=== PATIENT | male | born 1935 | race Caucasian/White ===

== ENCOUNTER → 2019-08-04 08:27 | Outpatient (BNVA) | payer MEDICARE, OTHER, SELFPAY | PROVIDERS: Family Provider Family Medicine; PCP Family Medicine; Referring Provider Family Medicine; Visit Provider Family Medicine | DX: N40.0 Benign prostatic hyperplasia without lower urinary tract symptoms (principal) | CPT/HCPCS: 84154 ==

== ENCOUNTER → 2020-01-13 09:23 | Outpatient (BNVA) | payer MEDICARE, OTHER, SELFPAY | PROVIDERS: Family Provider Family Medicine; PCP Family Medicine; Visit Provider Dermatology | DX: L82.1 Other seborrheic keratosis (principal); B35.1 Tinea unguium; D18.01 Hemangioma of skin and subcutaneous tissue; Z85.828 Personal history of other malignant neoplasm of skin; Z12.83 Encounter for screening for malignant neoplasm of skin | CPT/HCPCS: 17000; 17003; 99203 ==

== ENCOUNTER → 2020-02-02 10:09 | Outpatient (BNVA) | payer MEDICARE, OTHER, SELFPAY | PROVIDERS: Family Provider Family Medicine; PCP Family Medicine; Visit Provider Family Medicine | DX: E11.9 Type 2 diabetes mellitus without complications (principal); E78.00 Pure hypercholesterolemia, unspecified; I10 Essential (primary) hypertension | CPT/HCPCS: 80053; 80061; 83036; 85025 ==

== ENCOUNTER 2020-03-17 08:15 | Outpatient (CLI) | payer MEDICARE, OTHER, SELFPAY ==
--- NOTE | 2020-03-17 08:45 | USCV_ITS ---
Fernando Ortiz Age: 85 Gender: M : 1935 Exam Date: 03/17/2020 08:14 Ordering Phys: Raudel Neal DPM Technologist: Iron José Exam Location: [facility] [place] Indication: pad RIGHT LEFT Brachial 175.00 mmHg Brachial 173.00 mmHg Pressure (mmHg) Waveform Pressure (mmHg) Waveform 97.00 Pre-Exercise Toe Pressure 119.00 0.55 Pre-Exercise Toe/Brachial Index 0.68 FINDINGS bilateral ankle pressures >220 But normal resting ABIs bilaterally Slightly diminished resting TBI's bilaterally PVR waveforms revealing loss of dicrotic notch and relatively low amplitude waveforms bilaterally CONCLUSIONS Features of mild peripheral artery disease involving the distal vessels bilaterally Dr Eufemia Pulido MD FAC (Electronically Signed) Final Date: 17 March 2020 09:51 S
== END 2020-03-17 08:16 | disposition home or self-care (01) ==
LOC: RAD 08:22
PROVIDERS: PCP Family Medicine; Visit Provider Podiatrist Foot & Ankle Surgery
DX: I73.9 Peripheral vascular disease, unspecified (principal)
CPT/HCPCS: 93923

== ENCOUNTER → 2020-04-17 14:59 | Outpatient (BNVA) | payer MEDICARE, OTHER, SELFPAY | PROVIDERS: PCP Family Medicine; Visit Provider Family Medicine | DX: Z11.59 Encounter for screening for other viral diseases (principal) | CPT/HCPCS: 87635 ==

== ENCOUNTER → 2020-04-19 12:45 | Outpatient (BNVA) | payer MEDICARE, OTHER, SELFPAY | PROVIDERS: PCP Family Medicine; Visit Provider Family Medicine | DX: E11.9 Type 2 diabetes mellitus without complications (principal); U07.1 COVID-19; Z98.890 Other specified postprocedural states | CPT/HCPCS: 36416; 71046; 80053; 82962; 85025 ==

== ENCOUNTER → 2020-10-12 10:09 | Outpatient (BNVA) | payer MEDICARE, OTHER, SELFPAY | PROVIDERS: PCP Family Medicine; Visit Provider Family Medicine | DX: I12.9 Hypertensive chronic kidney disease with stage 1 through stage 4 chronic kidney disease, or unspecified chronic kidney disease (principal); N18.1 Chronic kidney disease, stage 1; N40.0 Benign prostatic hyperplasia without lower urinary tract symptoms; E78.00 Pure hypercholesterolemia, unspecified; E11.9 Type 2 diabetes mellitus without complications; M51.16 Intervertebral disc disorders with radiculopathy, lumbar region; D53.9 Nutritional anemia, unspecified; Z68.28 Body mass index [BMI] 28.0-28.9, adult; F17.211 Nicotine dependence, cigarettes, in remission | CPT/HCPCS: 80053; 80061; 82607; 83036; 85025; G0103 ==

== ENCOUNTER → 2021-01-12 09:06 | Outpatient (BNVA) | payer MEDICARE, OTHER, SELFPAY | PROVIDERS: PCP Family Medicine; Visit Provider Family Medicine | DX: E53.8 Deficiency of other specified B group vitamins (principal); E78.00 Pure hypercholesterolemia, unspecified; E11.9 Type 2 diabetes mellitus without complications | CPT/HCPCS: 80053; 80061; 82607; 83036; 85025 ==

== ENCOUNTER → 2021-04-05 11:47 | Outpatient (BNVA) | payer MEDICARE, OTHER, SELFPAY | PROVIDERS: PCP Family Medicine; Visit Provider Family Medicine | DX: E53.8 Deficiency of other specified B group vitamins (principal); D53.9 Nutritional anemia, unspecified; E11.9 Type 2 diabetes mellitus without complications; N18.1 Chronic kidney disease, stage 1; M51.16 Intervertebral disc disorders with radiculopathy, lumbar region | CPT/HCPCS: 80048; 82607; 83036; 85025 ==

== ENCOUNTER → 2021-08-08 10:09 | Outpatient (BNVA) | payer MEDICARE, OTHER, SELFPAY | PROVIDERS: PCP Family Medicine; Visit Provider Family Medicine | DX: E11.9 Type 2 diabetes mellitus without complications (principal); E53.8 Deficiency of other specified B group vitamins; I12.9 Hypertensive chronic kidney disease with stage 1 through stage 4 chronic kidney disease, or unspecified chronic kidney disease; N18.9 Chronic kidney disease, unspecified; M51.16 Intervertebral disc disorders with radiculopathy, lumbar region | CPT/HCPCS: 80048; 82607; 83036 ==

== ENCOUNTER → 2022-01-08 08:45 | Outpatient (BNVA) | payer MEDICARE, OTHER, SELFPAY | PROVIDERS: PCP Family Medicine; Visit Provider Podiatrist Foot & Ankle Surgery | DX: E11.8 Type 2 diabetes mellitus with unspecified complications (principal); E11.42 Type 2 diabetes mellitus with diabetic polyneuropathy; L60.3 Nail dystrophy; I73.9 Peripheral vascular disease, unspecified; Z79.84 Long term (current) use of oral hypoglycemic drugs | CPT/HCPCS: 11721 ==

== ENCOUNTER 2022-02-17 18:57 | Inpatient (IN) | payer MEDICARE, OTHER, SELFPAY ==
[2022-02-17] VITALS (42 sets, daily range): BP systolic 65–111; BP diastolic 40–71; PULSE 78–97; RESP 15–26; TEMP 36–36.9; O2SAT 88–98; BMI 27.8
--- NOTE | 2022-02-17 18:59 | ECG_ITS ---
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: : 1935 Requested By: Ryan Andrew Order Number: [id number] Reading MD: Measurements Intervals [place] Rate: 76 P: MD: QRS: 2 QRSD: 100 T: 31 QT: 414 QTc: 468 Interpretive Statements ATRIAL FIBRILLATION WITH ABERRANT CONDUCTION OR VENTRICULAR PREMATURE COMPLEXES ST ELEVATION, PROBABLY EARLY REPOLARIZATION [ST ELEVATION WITH NORMALLY INFLECTED T-WAVE] MINIMAL ST DEPRESSION [0.025+ mV ST DEPRESSION] ABNORMAL RHYTHM ECG INTERPRETATION BASED ON A DEFAULT AGE OF 40 YEARS No previous ECG available for comparison [id number]
--- NOTE | 2022-02-17 19:04 | XRR_ITS ---
PROCEDURE INFORMATION: Exam: XR Chest Exam date and time: 02/17/2022 7:10 PM Age: 87 years old Clinical indication: Pain; Chest pressure; Additional info: Cp TECHNIQUE: Imaging protocol: Radiologic exam of the chest. Views: 1 view. COMPARISON: CR XR chest 2V* [id number] 04/19/2020 1:03 PM FINDINGS: Lungs: Unchanged. Coarsening of lung markings again suggested at lower chest bilaterally and mid left chest. Pleural spaces: Unremarkable. No pleural effusion. No pneumothorax. Heart/Mediastinum: Stable borderline cardiac prominence. Bones/joints: Sternotomy wires are in place. Left shoulder arthroplasty hardware in place. XR/XR chest 1V portable [id number] IMPRESSION: No acute change from prior study
[2022-02-17] MEDS: ondansetron 2 mg/ML SDV 2 mL 4 MG IVP (19:11)
[2022-02-17 19:13] LABS: Basophils # 0.1 10^3/uL (0.0-0.1); Basophils % 0.8 %; Eosinophils # 0.1 10^3/uL (0.0-0.8); Eosinophils % 0.8 %; Hematocrit 34.1 % (42.0-52.0); Lymphocytes # 2.8 10^3/uL (0.8-4.8); Lymphocytes % 45.8 %; Mean Corpuscular HGB Conc 32.3 g/dL (30.0-36.0); Mean Corpuscular Hemoglobin 33.1 pg (28.0-34.0); Mean Corpuscular Volume 102.7 fl (80-94); Mean Platelet Volume 11.3 fL (7.4-10.4); Monocytes # 0.4 10^3/uL (0.2-0.9); Monocytes % 6.5 %; Neutrophils # 2.79 10^3/uL (1.8-7.7); Neutrophils % 45.3 %; Nucleated Red Blood Cells % 0.5 %; Platelet Count 211 10^3/cmm (130-400); Red Blood Count 3.32 10^6/uL (4.1-5.3); Red Cell Distribution Width 15.9 % (12.1-15.1); White Blood Count 6.2 10^3/uL (4.0-10.0)
[2022-02-17] MEDS: heparin 5,000 unit/mL INJ 1 mL 4000 UNIT IVP (19:13)
[2022-02-17] MEDS: ticagrelor 90 mg Tablet 180 MG PO (19:14)
[2022-02-17] MEDS: fentaNYL 50 mcg/mL INJ 2mL IVP (19:15)
[2022-02-17] MEDS: sodium chloride 0.9% 500 ML 999 ML IV (19:19)
--- NOTE | 2022-02-17 19:22 | XACV_ITS ---
Exam Room: ED.ROOM10 Ht: 183 cm Wt: 93 kg BSA: 2.19 m2 Gender: Male : 1935 Exam Priority: Routine Procedure(s): Procedure Description: Diagnostic procedure Procedure Description: Aortogram Procedure Description: Venous Graft Catheterization Procedure Description: QUIROZ Graft Catheterization Procedure Description: Coronary Angiography Júnior MCDONALD; Diagnostic Cath Status: Emergency Diagnostic Findings * Left Anterior Descending is ostially occluded. * Circumflex is ostially occluded. * There is no flow in the QUIROZ in the midsegment. * L * eft Internal Mammary Artery to Distal Left Anterior Descending graft: total occlusion, TIMMY: 0 flow. * RCA has diffuse, severely calcified, critical disease. And distal segment RCA is totally occluded. . * SVG to OM is a large graft. It supplies a very large territory and fills circumflex all the way back to left main with significant flow going into the proximal LAD and diagonal vessels. No significant disease is seen. * SVG to RCA is occluded.. * PROCCEDURE DETAIL: Patient has severe peripheral artery disease. We had difficulty obtaining access, then crossing equipment from femoral access into aorta secondary to distal aortic/iliac disease. Exchange length wire was used to exchange different catheters during the procedure. Patient had ostial left subclavian, severe, calcified stenosis. With significant difficulty we were able to cross with Glidewire and advanceddiagnostic catheter to subclavian artery and images were obtained. There was no flow in the mid section of QUIRZO. We did not have prior CABG report however given patient's symptoms and dynamic EKG changes in leads V1 to V3, we decided to attempt wiring the COREY. Multiple attempts were made to advance guide catheter into the subclavian artery however secondary to iliac/distal aortic stenosis and severe subclavian artery stenosis we were unsuccessful. We decided switch access to left radial artery. Access could not be obtained. We used ultrasound and it showed occluded radial artery.At this time patient's chest pain symptoms were better on nitro, and after discussion with the patient and family, decision was made to proceed with medical therapy. * INDICATION: 87 year old male with past medical history of coronary artery disease s/p CABG in 2003, hypertension, diabetes, CKD who presented with about hour and a half duration of substernal chest pain radiating to the left arm. It was initially severe. After receiving the nitroglycerin, it has improved somewhat however still rates it about 4-5/10 in intensity. EKG showing PVCs and dynamic EKG changes were noted in leads V1 and V3 with borderline ST elevation transiently. Line Out Worker was activated and patient brought to the cardiac Line Out Worker emergently. * Left Main: total occlusion, TIMMY: 0 flow. * Two grafts visualized. * Coronary angiography shows right dominance. Conclusions 1. Severe 2. multivessel CAD with occlusion of distal left main artery... 3. Severe diffusely diseased proximal to mid RCA is patent however distal vessel is occluded. SVG to RCA is occluded. 4. Patent large sized SVG to OM. 5. No flow seen in mid segment of QUIROZ. No prior CABG or cath report available. Possibly was attached to LAD and could be culprit vessel for current SC based on symptoms and dynamic EKG changes. Unsuccessful wiring attempts secondary to inability to put guide catheter in the left subclavian artery as has severe peripheral artery disease. Medical therapy decided after discussion with patient and family. 6. Patient has prior CABG. Recommendations * Transfer to ICU. * We will aggressively medically manage the patient. Continue dual antiplatelet therapy. * Restart heparin drip. We will keep him on Aggrastat for 6 hours. * Order echocardiogram. Interventional RX Recommendation: medical therapy and/or counseling Diagnostic RX Recommendation: PCI w/o planned CABG Anticoagulation: Heparin Pressures Phase:Rest AO : 179 / 109 ( 98 ) @ 3:43:07 PM 97 / 77 ( 87 ) @ 3:43:07 PM 73 / 62 ( 67 ) @ 3:43:07 PM 76 / 62 ( 70 ) @ 3:43:07 PM 80 / 67 ( 74 ) @ 3:43:07 PM 87 / 67 ( 77 ) @ 3:43:07 PM 119 / 56 ( 77 ) @ 3:43:07 PM 87 / 65 ( 76 ) @ 3:43:07 PM 138 / 67 ( 91 ) @ 3:43:07 PM 135 / 68 ( 90 ) @ 3:43:07 PM Clinical Evaluation EBL: 5mL-10mL Procedural Details Identified patient by full name and date of as verbalized by the patient/guarantor. Pre-Procedure Time Out. Does the consent match the physician's order: N/A Emergent. Accurate & Complete Informed Consent: N/A Emergent. Inpatient/Outpatient History & Physical on Chart: N/A Emergent. If H&P is completed, is and addenduem needed: N/A Emergent; If yes, is the addendum complete: N/A Emergent. Visualize and Verify Site with Patient/Guarantor: N/A. Relevant Radiology Images available: N/A Emergent. Pre-op teaching completed and patient verbalized understanding. The risks, benefits, and alternatives of sedation and/or procedure were discussed by physician. The patient agrees to continue. Procedure started. [facility] Clinical Fraility Score: 4: Vulnerable. Line Out Worker Indications: ACS <= 24 hours. Chest Pain Symptom Assessment: Atypical Angina. Correct patient, site and procedure confirmed by cath team. Current diagnosis: STEMI. PERRLA. Strong, equal hand head cleaning porter bilaterally. Lungs clear x 5 lobes. IV Site on Arrival: 18 gauge in the left anticubital. IV Fluids: 0.9% NaCl at KVO. 0 mL infused prior to laboratory tech. Oxygen started at 6liters/min via nasal canula. bilateral groins was prepped with chloroprep then draped in the usual sterile fashion. Baseline sample Acquired. HR: 85 BPM. Physician arrived. Physician scrubbed in. Immediate Pre-Procedure Time Out. Correct Patient: N/A Emergent; Correct Procedure: N/A Emergent; Correct Site: N/A Emergent; Correct Patient Position: N/A Emergent; Correct Supplies: N/A Emergent; Dried Flammable Prep: N/A Emergent; Blood Products Available: N/A Emergent;. Lidocaine 1% infiltrated to the right groin. Current Diagnosis : Unstable angina. Arterial access obtained with micropuncture set. A 5 haitian JL4 catheter in over the glidewire. Inventory is TR Glidewire Angled Stiff Shaft .035 260cm. patient put on 10L via oxy mask. Multiple views taken of left coronary artery. Catheter removed over the glide wire. A 5 haitian JR4 catheter in over wire. Multiple views taken of right coronary artery. SVG's to OM visualized and patent. Left Subclavian selected and arteriogram performed. glidewire inserted. wire out. QUIROZ to LAD visualized. Physician review of cine films. Catheter removed over the glide wire. A 5 haitian Angled Pig catheter in over wire. Aortogram performed in [place] @ 20 mL/second for a total of 40 mL. Catheter removed over the glide wire. Delay: Difficult Anatomy. 6 haitian IM guide catheter was inserted over the wire. Guide catheter out. A 5 haitian JR4 catheter in over the glidewire. Catheter out. Side port of femoral sheath attached to Normal Saline flush at KVO to maintain patency. left radial was prepped with chloroprep then draped in the usual sterile fashion. Lidocaine 1% infiltrated to the left radial. Ultrasound being used to access left radial artery. Sheath(s) sutured into position with 2-0 silk and sterile 4x4's and Op-site applied over the site. No oozing or signs and symptoms of hematoma noted. Arterial access obtained. wire unable to advance. wire and needle out. A Suture was successful obtaining hemostatsis at the Right Femoral artery insertion site. Arterial sheath flushed and connected to tranducer and pressure bag with heparinized saline. Post Procedure: Pulses reassessed and unchanged. PERRLA. Strong, equal hand head cleaning porter bilaterally. No VTE prophylaxis required. Medication's Wasted: Other = Lasix 60 mg. Post-op diagnosis: CAD. Estimated blood loss: 5mL-10mL. Responsiveness - Normal response to verbal stimuli; alert and oriented, PERRLA. Vital chart was stopped. Airway - Unaffected, no intervention required; spontaneous ventilation. Circulation: W/N/L, pulses unchanged. Nausea/Vomiting: No. Procedure completed. Patient transferred by bed to ICU. Access Site Site: Right Femoral artery Sheath Size: 6 Fr Hemostasis Method: Suture Hemostasis Success: Successful Procedure Medications Start: 7:37 PM Stop: 7:37 PM Medication: Lasix (furosemide) Amount: 40 mg Route: I.V. Start: 7:39 PM Stop: 7:39 PM Medication: Versed Amount: 1 mg Route: I.V. Start: 8:04 PM Stop: 8:04 PM Medication: Versed Amount: 1 mg Route: I.V. Start: 8:08 PM Stop: 8:08 PM Medication: Fentanyl Amount: 25 mcg Route: I.V. Start: 8:12 PM Stop: 8:12 PM Medication: Heparin Amount: 4000 units Route: I.V. I, the attending physician, have reviewed and verified all procedure medications. Yes, all medications given per verbal order History/Risk Factors Hypertension: No Dyslipidemia: No Peripheral Arterial Disease (PAD): No Myocardial Infarction (SC): No Obesity: Yes Renal Disease: No Prior Interventions PCI: No CABG: Yes Valve Surgery: No Report Signatures Finalized by Glynn Gibson MD on 02/28/2022 10:52 AM
--- NOTE | 2022-02-17 19:27 | P.HP_ITS ---
Providers/Chief Complaint Admitting Physician: Glynn Gibson MD Primary Care Provider: Elis Hernández MD Chief Complaint: CHEST PAIN History of Present Illness Fernando Ortiz is a 87 year old male with past medical history of coronary artery disease s/p CABG in 2003, hypertension, diabetes, CKD who presented with about hour and a half duration of substernal chest pain radiating to the left arm. It was initially severe. After receiving the nitroglycerin, it has improved somewhat however still rates it about 4-5/10 in intensity. EKG showing PVCs and dynamic EKG changes were noted in leads V1 and V3 with borderline ST elevation transiently. Tire Fabric Impregnating Range Tender was activated and patient brought to the cardiac Tire Fabric Impregnating Range Tender emergently. Review of Systems Narrative: CONSTITUTIONAL: No fever chills weight loss or gain or night sweats. [] HEENT: Normocephalic, atraumatic.[] RESPIRATORY: Has shortness of breath, no cough, sputum, hemoptysis or wheezing.[] CARDIOVASCULAR: Has shortness of breath and chest pain GI: no nausea vomiting diarrhea. [] SUPERVISOR PASTE PLANT: No numbness, tingling, weakness or loss of function in any part of the body. [] MUSCULOSKELETAL: No knee or joint pain or rashes. [] Medications/Allergies Home Medications Medication Instructions Recorded Confirmed Last Taken Type apple cider vinegar 300 mg tablet mg PO DAILY 08/23/19 01/08/22 Unknown History fluticasone propionate 50 2 spray intranasal DAILY #16 grams 03/01/20 01/08/22 Unknown Rx mcg/actuation nasal spray,suspension metformin 500 mg tablet 500 mg PO BID #180 tabs 01/01/21 01/08/22 Unknown Rx glipizide 5 mg tablet 5 mg PO BID 90 days #180 tabs 01/16/21 01/08/22 Unknown Rx mecobalamin (vitamin B12) 10,000 10,000 mcg IM .ONCE A MONTH 01/22/21 01/08/22 Unknown Rx mcg solution for injection Vitamin B12 deficiency 30 days #1 ea hydrochlorothiazide 25 mg tablet 25 mg PO DAILY #90 tabs 03/29/21 01/08/22 Unknown Rx tamsulosin 0.4 mg capsule 0.4 mg PO DAILY #90 caps 03/29/21 01/08/22 Unknown Rx allopurinol 300 mg tablet 300 mg PO DAILY #90 tabs 07/12/21 01/08/22 Unknown Rx atorvastatin 10 mg tablet 10 mg PO DAILY #90 tabs 07/12/21 01/08/22 Unknown Rx omeprazole 10 mg capsule,delayed 10 mg PO DAILY #90 caps 07/12/21 01/08/22 Unknown Rx release lisinopril 40 mg tablet 40 mg PO DAILY #90 tabs 10/15/21 01/08/22 Unknown Rx hydrocodone 7.5 mg-acetaminophen 1 tab PO Q4H PRN pain 7 days #42 12/10/21 01/08/22 Unknown Rx 325 mg tablet tabs amlodipine 5 mg tablet 5 mg PO DAILY #90 tabs 01/07/22 01/08/22 Unknown Rx Allergies Allergy/AdvReac Type Severity Reaction Status Date / Time No Known Allergies Allergy Verified 01/08/22 08:56 PFSH Acute PFSH: Medical History B12 deficiency CAD (coronary artery disease) Chronic kidney disease (CKD) Enrolled in chronic care management GERD (gastroesophageal reflux disease) History of abdominal hernia History of cataract History of gout History of nonmelanoma skin cancer Hyperlipidemia, unspecified Hypertension Lumbar disc disease with radiculopathy Onychomycosis Type 2 diabetes mellitus without complications Surgical History H/O shoulder surgery left History of appendectomy History of back surgery History of cholecystectomy History of knee replacement left knee in 2004 Status post aorto-coronary artery bypass graft Social History Smoking and tobacco status: never smoked Alcohol intake: never Lives independently: Yes Marital status: / service: Yes branch: [employer] 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 Vitals/I&O/Wt Last Vital Signs Temp 98.5 F 02/17/22 19:03 Pulse 84 02/17/22 19:22 Resp 20 H 02/17/22 19:22 BP 111/68 02/17/22 19:22 Pulse Ox 91 02/17/22 19:22 O2 Del Method 02/17/22 19:22 O2 Flow Rate 6 02/17/22 19:22 Weight last 48 hrs Weight 205 lb Physical Exam Narrative: GENERAL: Patient is alert, awake and oriented x3. [] NECK: No jugular vein distension. [] HEENT: No cyanosis. No icterus. No pallor. [] HEART: Regular S1 and S2. No murmur, rub or gallop. [] LUNGS: Mild crackles bilaterally ABDOMEN: Soft, nontender and nondistended. Positive bowel sounds. No guarding, r ebound or tenderness. [] CENTRAL NERVOUS SYSTEM: Grossly nonfocal. [] EXTREMITIES: Lower extremities with 1+ edema bilaterally. Pulses palpable in the lower extremities, both dorsalis pedis and posterior tibial. [] Data : 02/17/22 18:47 02/17/22 18:47 A&P Assessment and plan (1) CAD (coronary artery disease): Status: Acute (2) Hypertension: Status: Acute Qualifiers: Hypertension type: essential hypertension Qualified Code(s): I10 - Essential (primary) hypertension (3) Status post aorto-coronary artery bypass graft: Status: Acute (4) Chronic kidney disease (CKD): Status: Acute Qualifiers: Chronic kidney disease stage: stage 1 Qualified Code(s): N18.1 - Chronic kidney disease, stage 1 (5) Hyperlipidemia, unspecified: Status: Acute Qualifiers: Hyperlipidemia type: pure hypercholesterolemia Qualified Code(s): E78.00 - Pure hypercholesterolemia, unspecified (6) Type 2 diabetes mellitus without complications: Status: Acute Qualifiers: Diabetes mellitus intermediate insulin use: without intermediate use Qualified Code(s): E11.9 - Type 2 diabetes mellitus without complications (7) NSTEMI (non-ST elevated myocardial infarction): Status: Acute Plan Patient has high risk NSTEMI with dynamic EKG changes and transient ST elevations in the leads V1-V3. Patient has been loaded with aspirin and brilinta. Heparin bolus given. Going to cardiac biological lab technician for an emergent cardiac cath Will need serial troponin ECHO ordered High intensity statin therapy IV lasix as appears volume overloaded Medicine team has been consulted to help with management of medical issues. Attestations Medical Necessity Statement*: Care expected to cross 2 midnights. Patient has presented with worsening angina and dynamic EKG changes, being taken to biological lab technician. Coding Level of Care Code Acute Curtain Fitter for [facility] Fwd Diagnoses CAD (coronary artery disease) I25.10 Hypertension I10 Hypertension type: essential hypertension Status post aorto-coronary artery bypass graft Z95.1 Chronic kidney disease (CKD) N18.1 Chronic kidney disease stage: stage 1 Hyperlipidemia, unspecified E78.00 Hyperlipidemia type: pure hypercholesterolemia Type 2 diabetes mellitus without complications E11.9 Diabetes mellitus intermediate insulin use: without special weapons unit officer use NSTEMI (non-ST elevated myocardial infarction) I21.4
[2022-02-17 19:34] LABS: Troponin(5th) Baseline 27 ng/L (0-15)
[2022-02-17 19:40] LABS: Alanine Aminotransferase 23 U/L (0-41); Albumin Level 4.2 g/dL (3.5-5.2); Alkaline Phosphatase 98 U/L (40-130); Anion Gap 21.9 (5-19); Aspartate Amino Transferase 25 U/L (0-40); Blood Urea Nitrogen 24 mg/dL (8-23); Calcium 9.3 mg/dL (8.5-10.5); Carbon Dioxide 21 mmol/L (22-29); Chloride 103 mmol/L (98-107); Creatine Phosphokinase 79 U/L (39-308); Globulin 2.7 g/dL (1.3-4.6); Glucose 199 mg/dL (65-115); NT Pro B Type Natriuretic Pept 1713 pg/mL (0-450); Osmolality Calculated 304 mOsm/kg (285-295); Potassium 3.9 mmol/L (3.5-5.1); Sodium 142 mmol/L (136-145); Total Bilirubin 0.6 mg/dL (0.15-1.2); Total Protein 6.9 g/dL (6.6-8.7)
[2022-02-17 19:54] LABS: INR 1.03 (0.8-1.2); Partial Thromboplastin Time 25.7 SECONDS (23.9-36.7)
--- NOTE | 2022-02-17 20:50 | PC.NURSE ---
Pt. arrived to ICU room 5 from phlebotomist medical lab assistant. Pt. has sheath present to right groin cath site with pressure bag attatched with IABP capabilities which will be connected and used. Pt. is complaining of chest pain at 8/10 that goes to left shoulder and down left arm. Mailing Machine Helper Dr. Dodd aware. Nitro drip to be started that was brought up from phlebotomist medical lab assistant. Pt. is laying flat. Pt. is on 10L oxy mask. NO other needs identified at this time.
[2022-02-17] MEDS: nitroglycerin drip 50 MG/250 ML PREMIX IV (21:00)
--- NOTE | 2022-02-17 21:04 | ECG_ITS ---
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 Measurements Intervals [place] Rate: 93 P: MD: QRS: -22 QRSD: 107 T: 71 QT: 381 QTc: 474 Interpretive Statements ATRIAL FIBRILLATION BORDERLINE LEFT AXIS DEVIATION [QRS AXIS < -20] LOW QRS VOLTAGE IN PRECORDIAL LEADS INCOMPLETE RIGHT BUNDLE BRANCH BLOCK MODERATE ST DEPRESSION Compared to ECG 02/17/2022 18:59:28 Low QRS voltage now present Incomplete right bundle-branch block now present Ventricular premature complex(es) no longer present Aberrant conduction of supraventricular beat(s) no longer present Early repolarization no longer present ST (T wave) deviation still present Electronically Signed On 02-18-2022 8:07:17 CDT by Karli Ibarra M.D. [id number]
--- NOTE | 2022-02-17 21:30 | PC.NURSE ---
Dr. Gibson at bedside. Pt. update provided
--- NOTE | 2022-02-17 21:38 | XRR_ITS ---
PROCEDURE INFORMATION: Exam: XR Chest Exam date and time: 02/17/2022 9:49 PM Age: 87 years old Clinical indication: Shortness of breath; Additional info: SOB TECHNIQUE: Imaging protocol: Radiologic exam of the chest. Views: 1 view. COMPARISON: CR (CHEST, ) 02/17/2022 7:10 PM FINDINGS: Lungs: New interstitial thickening likely relating to edema or congestion. Pulmonary vasculature has shown interval increase in caliber. New infiltrate at lower right chest favored to represent edema superimposed on chronic changes. Pleural spaces: Unremarkable. No pleural effusion. No pneumothorax. Heart/Mediastinum: Heart grossly unchanged. Bones/joints: Left shoulder arthroplasty hardware in place. Sternotomy wires are in place. XR/XR chest 1V portable [id number] IMPRESSION: New pulmonary edema and pulmonary venous congestion
[2022-02-17 21:43] LABS: ABG PCO2 26.8 mmHg (35-45); ABG PH Result 7.38 (7.35-7.45); Alveolar-Arterial Oxygen Gradi 6.6 mmHg (5-10); Arterial Blood Gas Hematocrit 30.9 % (42-52); Base Excess ABG -8.1 mmol/L (-2.0-2.0); Blood Gas Sample Site Femoral, left; Blood Gas Sample Type Arterial; Carboxyhemoglobin 0.2 %THgb (0.4-20.1); HCO3 ABG 15.8 mmol/L (22-26); HGB O2 Sat 89.4 % (95-100); Ionized Calcium Level - ABG 1.1 mmol/L (1.1-1.4); Methemoglobin 0.7 % (0.4-1.5); Oxygen Device OXY MASK; Oxygen Saturation ABG 90.2; PO2 ABG 64.9 mmHg (80.0-100.0); Potassium Level - ABG 3.5 mmol/L (3.5-5.0); Total Hemoglobin 10.1 g/dL (14-18)
--- NOTE | 2022-02-17 21:43 | PM.CONSULT ---
Providers/Reason For Consult Consulting Physician/Specialty*: Cardiology Reason for Consult*: Cardiogenic shock Attending Physician: Glynn Gibson M.D Primary Care Provider: Elis Hernández MD History of Present Illness History of Present Illness Fernando Ortiz is a 87 year old male history of CAD status post CABG, hypertension, dyslipidemia, noninsulin-dependent type 2 diabetes mellitus, chronic kidney disease, history of paroxysmal atrial fibrillation, who presents to [facility] for chest pain. Patient presents [facility] for chest pain, substernal, rating down left arm, EKG showed dynamic EKG changes, patient was brought back to the Professor Of Chemistry, was found to have severe diffuse disease, severe disease in grafts, no intervene able lesions. Patient was brought back to ICU, currently on 15 L oxygen mask, on nitro drip, heart line in place, MAP around 65, still complaining of left-sided chest pain rating down the left shoulder. I advised patient that patient is in cardiogenic shock, acute hypoxic respiratory failure, has a high risk of morbidity and mortality given his severe diffuse disease. He has high risk of cardiac arrest, high risk of morbidity and mortality in the next 24 to 48 hours. He boisterously, all questions answered, he agrees to proceed with remaining a full code, with medical interventions. He remains alert oriented x3, following all commands, coordination severe left Shoulder pain, is on maximum dose nitroglycerin, and advised nurse to give him morphine. He is on 15 L Oxymizer, will order ABG, chest x-ray, blood work, monitor him throughout the night. Review of Systems Card: Reports: chest pain Resp: Reports: dyspnea Medications/Allergies Home Medications Medication Instructions Recorded Confirmed Last Taken Type apple cider vinegar 300 mg tablet mg PO DAILY 08/23/19 01/08/22 Unknown History fluticasone propionate 50 2 spray intranasal DAILY #16 grams 03/01/20 01/08/22 Unknown Rx mcg/actuation nasal spray,suspension metformin 500 mg tablet 500 mg PO BID #180 tabs 01/01/21 01/08/22 Unknown Rx glipizide 5 mg tablet 5 mg PO BID 90 days #180 tabs 01/16/21 01/08/22 Unknown Rx mecobalamin (vitamin B12) 10,000 10,000 mcg IM .ONCE A MONTH 01/22/21 01/08/22 Unknown Rx mcg solution for injection Vitamin B12 deficiency 30 days #1 ea hydrochlorothiazide 25 mg tablet 25 mg PO DAILY #90 tabs 03/29/21 01/08/22 Unknown Rx tamsulosin 0.4 mg capsule 0.4 mg PO DAILY #90 caps 03/29/21 01/08/22 Unknown Rx allopurinol 300 mg tablet 300 mg PO DAILY #90 tabs 07/12/21 01/08/22 Unknown Rx atorvastatin 10 mg tablet 10 mg PO DAILY #90 tabs 07/12/21 01/08/22 Unknown Rx omeprazole 10 mg capsule,delayed 10 mg PO DAILY #90 caps 07/12/21 01/08/22 Unknown Rx release lisinopril 40 mg tablet 40 mg PO DAILY #90 tabs 10/15/21 01/08/22 Unknown Rx hydrocodone 7.5 mg-acetaminophen 1 tab PO Q4H PRN pain 7 days #42 12/10/21 01/08/22 Unknown Rx 325 mg tablet tabs amlodipine 5 mg tablet 5 mg PO DAILY #90 tabs 01/07/22 01/08/22 Unknown Rx Allergies Allergy/AdvReac Type Severity Reaction Status Date / Time No Known Allergies Allergy Verified 01/08/22 08:56 PFSH Acute PFSH: Medical History B12 deficiency CAD (coronary artery disease) Chronic kidney disease (CKD) Enrolled in chronic care management GERD (gastroesophageal reflux disease) History of abdominal hernia History of cataract History of gout History of nonmelanoma skin cancer Hyperlipidemia, unspecified Hypertension Lumbar disc disease with radiculopathy Onychomycosis Type 2 diabetes mellitus without complications Surgical History H/O shoulder surgery left History of appendectomy History of back surgery History of cholecystectomy History of knee replacement left knee in 2004 Status post aorto-coronary artery bypass graft Social History Smoking and tobacco status: never smoked Alcohol intake: never Lives independently: Yes Marital status: / service: Yes branch: [facility] 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 Vitals/I&O/Wt Last Vital Signs Temp 98.5 F 02/17/22 19:03 Pulse 78 02/17/22 19:33 Resp 18 02/17/22 19:33 BP 111/63 02/17/22 19:33 Pulse Ox 90 02/17/22 19:33 O2 Del Method 02/17/22 19:22 O2 Flow Rate 6 02/17/22 19:22 Weight last 48 hrs Weight 92.986 kg Physical Exam Const: COMMON NORMALS: no acute distress and patient oriented x3 HENMT: COMMON NORMALS: normocephalic HEAD & SCALP: normocephalic Neck/C-Spine: OTHER: JVD present Resp: COMMON NORMALS: normal respiratory effort, No retractions and No use of accessory muscles AUSCULTATION: crackles Cardio: COMMON NORMALS: regular rate, regular rhythm, S1 normal heart sound present and S2 normal heart sound present RATE: regular rate RHYTHM: regular rhythm HEART SOUNDS: S1 normal heart sound present and S2 normal heart sound present GI: COMMON NORMALS: Normal to inspection, nondistended, normoactive bowel sounds present, Soft to palpation, non-tender, No hepatosplenomegaly present, no masses and no bruits PALPATION: Yes Soft to palpation and Yes No hepatosplenomegaly present Extremity: COMMON NORMALS: no pedal edema NARRATIVE EXTREMITY EXAM: Mottling bilateral extremity, DP PT pulses barely palpable Neuro: COMMON NORMALS: patient oriented x3 Psych: COMMON NORMALS: mental status grossly normal Data : 02/17/22 18:47 02/17/22 18:47 A&P Assessment and plan (1) Cardiogenic shock: Status: Acute (2) NSTEMI (non-ST elevated myocardial infarction): Status: Acute (3) Acute respiratory failure with hypoxia: Status: Acute Plan Acute hypoxic respiratory failure, cardiogenic shock, NSTEMI Plan -BiPAP -Monitor respiratory status closely -We will dose Lasix based on clinical progress -Currently on a nitro drip, receiving gentle hydration -Receiving Aggrastat, heart line in place -Aspirin, statin -Anticoagulation currently on hold -Check potassium, magnesium -Insulin, low-dose sliding scale -Full code -Anticoagulant: Currently on hold -Prognosis is guarded, statuses critical -Patient advised his high risk of respiratory failure, high risk of cardiac arrest, high risk of morbidity and mortality in the next 24 to 48 hours Consult Attestations Medical Necessity Statement: Patient requires hospitalization, inpatient, greater than 2 midnights, for cardiogenic shock, NSTEMI, acute respiratory failure with hypoxia Coding Level of Care Code Acute Glue Mixer for [facility] Fwd Diagnoses Cardiogenic shock R57.0 NSTEMI (non-ST elevated myocardial infarction) I21.4 Acute respiratory failure with hypoxia J96.01
--- NOTE | 2022-02-17 21:45 | PC.NURSE ---
Dr. Grant at bedside. Pt. update provided.
--- NOTE | 2022-02-17 21:51 | W.ED.CHESTPA ---
HPI - Chest Pain General: Chief Complaint: Chest Pain Stated Complaint: CHEST PAIN Time Seen by Provider: 02/17/22 19:01 Source: patient, family and EMS History of Present Illness: 87-year-old gentleman with a history of coronary disease status post three-vessel CABG in 2003. He states he has not had any procedures since. He has a history of diabetes as well. He presents with chest discomfort starting about 30 minutes prior to arrival. He is short of breath as well. He notes that he became diaphoretic, and somewhat nauseated. This seemed to come out of the blue. He was given aspirin and nitroglycerin in the field with some improvement. EKG changes were noted in the field, and the patient came in as a STEMI alert. MD complaint: chest pain Pertinent past history: coronary artery disease Onset (ago): minute(s) Timing of current episode: constant Onset: during rest Pain location: substernal Pain radiation: none Quality: tightness Relieving factors: nitroglycerin Associated symptoms: Reports diaphoresis, dyspnea and nausea; Deny abdominal pain, fever(s), palpitations, syncope or vomiting Treatment prior to arrival: aspirin, nitroglycerin and oxygen Review of Systems Const: Reports: diaphoresis; Denies: fever(s) Card: Reports: chest pain; Denies: palpitations or syncope Resp: Reports: dyspnea GI: Reports: nausea; Denies: abdominal pain or vomiting Skin/Breast: Denies: rash PFSH ED PFSH: Medical History B12 deficiency CAD (coronary artery disease) Chronic kidney disease (CKD) Enrolled in chronic care management GERD (gastroesophageal reflux disease) History of abdominal hernia History of cataract History of gout History of nonmelanoma skin cancer Hyperlipidemia, unspecified Hypertension Lumbar disc disease with radiculopathy Onychomycosis Type 2 diabetes mellitus without complications Surgical History H/O shoulder surgery left History of appendectomy History of back surgery History of cholecystectomy History of knee replacement left knee in 2004 Status post aorto-coronary artery bypass graft Social History Smoking and tobacco status: never smoked Alcohol intake: never Lives independently: Yes Marital status: / service: Yes branch: [employer] 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 Physical Exam Const: GENERAL APPEARANCE: cooperative, in distress and ill appearing HENMT: COMMON NORMALS: normocephalic, atraumatic and Normal external nose present HEAD & SCALP: normocephalic and atraumatic NOSE: Normal external nose present Eye: COMMON NORMALS: Equal, round and reactive pupils present and EOMs intact bilaterally PUPIL: Yes Equal, round and reactive pupils present Neck/C-Spine: GENERAL: Yes trachea midline Chest: CHEST: Yes Symmetrical chest wall rise Resp: COMMON NORMALS: No use of accessory muscles and clear to auscultation bilaterally EFFORT & INSPECTION: Yes tachypneic AUSCULTATION: clear to auscultation bilaterally Cardio: COMMON NORMALS: regular rate and regular rhythm RATE: regular rate RHYTHM: regular rhythm GI: COMMON NORMALS: Normal to inspection, nondistended, normoactive bowel sounds present, Soft to palpation and non-tender PALPATION: Yes Soft to palpation Extremity: COMMON NORMALS: no pedal edema Neuro: EDER COMA SCALE: document GCS findings Eder coma scale eye opening: Spontaneous [place] coma scale verbal response: Orientated [place] coma scale motor response: Obey commands [place] coma scale total score: 15 Course Vital Signs: Vital signs: Vital Signs Temperature 98.5 F 02/17/22 19:03 Pulse Rate 78 02/17/22 19:33 Respiratory Rate 18 02/17/22 19:33 Blood Pressure 111/63 02/17/22 19:33 Pulse Oximetry 90 02/17/22 19:33 Oxygen Delivery Me thod 02/17/22 19:22 Oxygen Flow Rate 6 02/17/22 19:22 MDM - Chest Pain Medical Decision Making EKG changes were noted in the field. They were noted on his arrival as well. Cardiology has been contacted via STEMI alert prior to patient's arrival. I spoke with the career development coordinator shortly after evaluating the patient, and he had a chance to be the EKG. We agree that ST elevation anteriorly is present although not typical. The patient is typical in his presentation and has a history of disease however. On the monitor, he had significant ST elevation that was typical in lead I. Systolic blood pressures have been around 100. He is requiring oxygen, and does not usually. Chest x-ray shows some vascular congestion.He went to the Osteopathic Physician directly from the ER. Lab Data : 02/17/22 18:47 02/17/22 18:47 Radiology Impressions Chest X-Ray 02/17/22 19:04 IMPRESSION: No acute change from prior study Laboratory Results WBC 6.2 10^3/uL (4.0-10.0) 02/17/22 18:47 RBC 3.32 10^6/uL (4.1-5.3) L 02/17/22 18:47 Hgb 11.0 g/dL (11.7-16.6) L 02/17/22 18:47 Hct 34.1 % (42.0-52.0) L 02/17/22 18:47 MCV 102.7 fl (80-94) H 02/17/22 18:47 MCH 33.1 pg (28.0-34.0) 02/17/22 18:47 MCHC 32.3 g/dL (30.0-36.0) 02/17/22 18:47 RDW 15.9 % (12.1-15.1) H 02/17/22 18:47 Plt Count 211 10^3/cmm (130-400) 02/17/22 18:47 MPV 11.3 fL (7.4-10.4) H 02/17/22 18:47 Neut % (Auto) 45.3 % 02/17/22 18:47 Lymph % (Auto) 45.8 % 02/17/22 18:47 Wallace % (Auto) 6.5 % 02/17/22 18:47 Eos % (Auto) 0.8 % 02/17/22 18:47 Baso % (Auto) 0.8 % 02/17/22 18:47 Neut # (Auto) 2.79 10^3/uL (1.8-7.7) 02/17/22 18:47 Lymph # (Auto) 2.8 10^3/uL (0.8-4.8) 02/17/22 18:47 Wallace # (Auto) 0.4 10^3/uL (0.2-0.9) 02/17/22 18:47 Eos # (Auto) 0.1 10^3/uL (0.0-0.8) 02/17/22 18:47 Baso # (Auto) 0.1 10^3/uL (0.0-0.1) 02/17/22 18:47 Nucleated RBC % (auto) 0.5 % 02/17/22 18:47 Nucleated RBCs # 0.0 /100WBC 02/17/22 18:47 PT 13.80 SECONDS (12.1-14.9) 02/17/22 19:20 INR 1.03 (0.8-1.2) 02/17/22 19:20 APTT 25.7 SECONDS (23.9-36.7) 02/17/22 19:20 Sodium 142 mmol/L (136-145) 02/17/22 18:47 Potassium 3.9 mmol/L (3.5-5.1) 02/17/22 18:47 Chloride 103 mmol/L (98-107) 02/17/22 18:47 Carbon Dioxide 21 mmol/L (22-29) L 02/17/22 18:47 Anion Gap 21.9 (5-19) H 02/17/22 18:47 BUN 24 mg/dL (8-23) H 02/17/22 18:47 Creatinine 1.3 mg/dL (0.7-1.2) H 02/17/22 18:47 GFR Calculation Not Reportable 02/17/22 18:47 Glucose 199 mg/dL (65-115) H 02/17/22 18:47 Calculated Osmolality 304 mOsm/kg (285-295) H 02/17/22 18:47 Calcium 9.3 mg/dL (8.5-10.5) 02/17/22 18:47 Total Bilirubin 0.6 mg/dL (0.15-1.2) 02/17/22 18:47 AST 25 U/L (0-40) 02/17/22 18:47 ALT 23 U/L (0-41) 02/17/22 18:47 Alkaline Phosphatase 98 U/L (40-130) 02/17/22 18:47 Creatine Kinase 79 U/L (39-308) 02/17/22 18:47 Troponin T Baseline 27 ng/L (0-15) H 02/17/22 18:47 NT-Pro-B Natriuret Pep 1713 pg/mL (0-450) H 02/17/22 18:47 Total Protein 6.9 g/dL (6.6-8.7) 02/17/22 18:47 Albumin 4.2 g/dL (3.5-5.2) 02/17/22 18:47 Globulin 2.7 g/dL (1.3-4.6) 02/17/22 18:47 Discharge Plan Discharge Patient Disposition: Admitted As Inpatient Admit Provider: Glynn Gibson Clinical Impression: ST elevation myocardial infarction (STEMI) Condition: Serious Coding Level of Care Code ED Access Clerk for g Fwd Exam Comprehensive
[2022-02-17] MEDS: morphine 4 mg/mL SDV 1 mL 2 MG IVP (22:03)
[2022-02-17] MEDS: pantoprazole 40 mg SDV IVP (22:03)
--- NOTE | 2022-02-17 22:21 | PM.MISC ---
Miscellaneous Note Purpose of Documentation: Brief Procedure Note Note: Findings: We had difficulty crossing into the distal aorta from iliac artery as likely has significant disease there. Left radial artery very small in size and heavily calcified, wire could not be advanced. Left main artery: Occuleded in the distal vessel LAD: Occluded LCx: Occluded RCA: Severe, diffuse disease and occluded in the distal vessel SVG to OM: Patent. Large area supplied by the graft. It back fills to left main and supplies to proximal LAD and diagonal artery. QUIROZ to LAD: No flow seen after the proximal portion. Selective engagement with even diagnostic catheter was not possible, because of subclavian tortuosity, calcification and stenosis. SVG to RCA: Occluded Likely culprit is the no flow in the QUIROZ to LAD. Attempt was made to engage the QUIROZ, however with no left arm access, and inability to advance the guide catheter through the calcified, tortuous and stenotic left subclavian artery, we were not able to engage QUIROZ. Also benefit of PCI attempt at QUIROZ with no flow will be questionable. At this time, after discussion with patient's family, decision made to treat him medically. Recommendations: We will continue dual antiplatelet agents Resume heparin gtt 4 hours after sheath removal ECHO ordered Patient's prognosis is guarded. This has been discussed with the patient and family. Patient wants to be full code at this time.
[2022-02-17] MEDS: ipratropium-albuterol 3 mL Neb INHALATION (23:31)
[2022-02-17] MEDS: tirofiban 5 MG/100 ML PREMIX 11 MG IV (23:50)
[2022-02-17] MEDS: piperacillin-tazobactam 3.375 GM in sodium chloride 0.9% (plus) 50 ML IV (23:54)
[2022-02-17] MEDS: bumetanide 0.25 mg/mL SDV 4 mL 1 MG IVP (23:54)
[2022-02-18] VITALS (82 sets, daily range): BP systolic 53–113; BP diastolic 33–60; PULSE 0–101; RESP 0–29; TEMP 34.9–35.6; O2SAT 87–99
[2022-02-18 00:07] LABS: Partial Thromboplastin Time 88.9 SECONDS (23.9-36.7)
[2022-02-18 00:15] LABS: Anion Gap 25.9 (5-19); Blood Urea Nitrogen 27 mg/dL (8-23); Calcium 8.6 mg/dL (8.5-10.5); Carbon Dioxide 16 mmol/L (22-29); Chloride 102 mmol/L (98-107); Glucose 236 mg/dL (65-115); Magnesium 1.4 mg/dL (1.7-2.3); NT Pro B Type Natriuretic Pept 1900 pg/mL (0-450); Osmolality Calculated 303 mOsm/kg (285-295); Potassium 3.9 mmol/L (3.5-5.1); Sodium 140 mmol/L (136-145)
[2022-02-18] MEDS: ondansetron 2 mg/ML SDV 2 mL 4 MG IVP (00:16)
[2022-02-18 00:18] LABS: Lactate (Lactic Acid level) 7.4 mmol/L (0.5-2.2); Troponin 5 2HR 103.3 ng/L (0-15); Troponin 5 2HR Delta 76.3 ABS# (0-10)
[2022-02-18] MEDS: fentaNYL 50 mcg/mL INJ 2mL IVP (00:41)
--- NOTE | 2022-02-18 01:00 | PC.NURSE ---
Pt. begining to have large amounts of blood in urine. Dr. Grant updated and received orders.
--- NOTE | 2022-02-18 01:04 | ECG_ITS ---
[facility] Test Date: 2022-02-18 Pat Name: Fernando Ortiz Department: Room: [facility] Gender: Male Architecture Consultant: : 1935 Requested By: Ryan Andrew Order Number: [id number] Saundra MD: Karli Ibarra M.D. Measurements Intervals Basalt Rate: 94 P: [place]: QRS: -9 QRSD: 105 T: 65 QT: 378 QTc: 473 Interpretive Statements ATRIAL FIBRILLATION WITH ABERRANT CONDUCTION OR VENTRICULAR PREMATURE COMPLEXES INCOMPLETE RIGHT BUNDLE BRANCH BLOCK ANTEROSEPTAL MYOCARDIAL INFARCTION , OF INDETERMINATE AGE Compared to ECG 02/17/2022 21:38:44 Ventricular premature complex(es) now present Aberrant conduction of supraventricular beat(s) now present Myocardial infarct finding now present ST (T wave) deviation no longer present Electronically Signed On 02-18-2022 8:04:51 CDT by Karli Ibarra M.D. [id number]
[2022-02-18 01:20] LABS: INR 1.14 (0.8-1.2)
[2022-02-18] MEDS: magnesium sulfate premix 4 GM/100 ML PREMIX IV (03:06)
[2022-02-18] MEDS: FUROsemide 100 MG in sodium chloride 0.9% 40 ML 10 MG IV (03:06)
[2022-02-18] MEDS: ipratropium-albuterol 3 mL Neb INHALATION ×2 (03:13→08:48)
[2022-02-18 03:47] LABS: Troponin 5 6HR 466.9 ng/L (0-15); Troponin 5 6HR Delta 439.9 ng/L (0-12)
[2022-02-18 04:39] LABS: Basophils % 0.1 %; Hematocrit 35.5 % (42.0-52.0); Hemoglobin 10.7 g/dL (11.7-16.6); Lymphocytes # 0.6 10^3/uL (0.8-4.8); Lymphocytes % 7.5 %; Mean Corpuscular HGB Conc 30.1 g/dL (30.0-36.0); Mean Corpuscular Hemoglobin 33.4 pg (28.0-34.0); Mean Corpuscular Volume 110.9 fl (80-94); Mean Platelet Volume 11.6 fL (7.4-10.4); Monocytes # 0.3 10^3/uL (0.2-0.9); Monocytes % 3.7 %; Neutrophils # 6.38 10^3/uL (1.8-7.7); Neutrophils % 87.2 %; Nucleated Red Blood Cells # 0.1 /100WBC; Platelet Count 216 10^3/cmm (130-400); Red Cell Distribution Width 16.4 % (12.1-15.1); White Blood Count 7.3 10^3/uL (4.0-10.0)
[2022-02-18 04:56] LABS: INR 1.21 (0.8-1.2)
[2022-02-18 04:57] LABS: Partial Thromboplastin Time 26.1 SECONDS (23.9-36.7)
[2022-02-18 05:47] LABS: Lactate (Lactic Acid level) 11.3 mmol/L (0.5-2.2)
--- NOTE | 2022-02-18 06:00 | PC.NURSE ---
Called Dr. Gibson and updated on patient condition. Also informed of inability to obtain another additional peripheral iv and with difficulty getting blood pressures with the cuff that I and fellow nursing staff felt it was safer at this time to keep right femoral sheath in place. Dr. Gibson agreed. Will continue to have sheath in place at this time.
--- NOTE | 2022-02-18 06:45 | PC.NURSE ---
All arterial blood pressures are printed and placed in patient hard chart at this time.
[2022-02-18 06:47] LABS: Alanine Aminotransferase 103 U/L (0-41); Albumin Level 3.8 g/dL (3.5-5.2); Alkaline Phosphatase 95 U/L (40-130); Anion Gap 35.7 (5-19); Aspartate Amino Transferase 140 U/L (0-40); Blood Urea Nitrogen 31 mg/dL (8-23); C Reactive Protein 3.1 mg/L (0.0-4.9); Calcium 8.6 mg/dL (8.5-10.5); Chloride 98 mmol/L (98-107); Globulin 2.8 g/dL (1.3-4.6); Glucose 324 mg/dL (65-115); Magnesium 2.9 mg/dL (1.7-2.3); NT Pro B Type Natriuretic Pept 3536 pg/mL (0-450); Osmolality Calculated 305 mOsm/kg (285-295); Phosphorus 7.2 mg/dL (2.5-4.5); Potassium 4.7 mmol/L (3.5-5.1); Sodium 138 mmol/L (136-145); Total Bilirubin 1.1 mg/dL (0.15-1.2); Total Protein 6.6 g/dL (6.6-8.7)
--- NOTE | 2022-02-18 06:55 | PC.NURSE ---
Bedside report completed with NADIR Krueger. No quiestins per pateint. Answered Kamran Faustin's questions about DPOA paperwork.
--- NOTE | 2022-02-18 07:00 | XRR_ITS ---
PROCEDURE INFORMATION: Exam: XR Chest Exam date and time: 02/18/2022 5:31 AM Age: 87 years old Clinical indication: Shortness of breath; Prior surgery; Surgery type: Open heart; Patient HX: SOB follow up TECHNIQUE: Imaging protocol: Radiologic exam of the chest. Views: 1 view. COMPARISON: CR (CHEST, ) 02/17/2022 9:49 PM FINDINGS: Lungs: Continued findings compatible with CHF and interstitial pulmonary edema, possibly slightly improved in the interval. Pleural spaces: No visible pneumothorax. No definite pleural fluid. Heart/Mediastinum: Stable moderate cardiomegaly. Bones/joints: Prior median sternotomy. XR/XR chest 1V portable [id number] IMPRESSION: 1. Continued findings compatible with CHF and interstitial pulmonary edema, possibly slightly improved in the interval. 2. Other findings discussed above.
--- NOTE | 2022-02-18 08:10 | PC.NURSE ---
Pt requested BiPap mask to be off so he could talk to family. Applied Oxymask at 8lpm/NC ( his previous O2 amount). Less than 5 minutes later pateint stated he needed it back o he could not breath. O2 sats at 94%. Lung sound crackles while off BiPap. RT notified of changes.
--- NOTE | 2022-02-18 08:19 | PC.PHAR ---
pt states he takes care of his own medications-pt states he is still taking glipizide 5mg bid ext med history shows last filled 09/06/21 90d/s-hctz 25mg daily ext med history shows last filled 08/12/21 90d/s-pt states he takes aspirin 81mg prn-notes are made in the pharmacy comments
[2022-02-18 08:26] LABS: Carbon Dioxide 9 mmol/L (22-29); Creatine Phosphokinase 602 U/L (39-308)
[2022-02-18 08:30] LABS: Glucose Point of Care 419 mg/dL (70-110)
[2022-02-18] MEDS: sodium bicarbonate 8.4% 1 mEq/mL 50mL Syr 100 MEQ IVP (09:10)
[2022-02-18] MEDS: insulin lispro 100 unit/1 mL SUBCUT (09:10)
--- NOTE | 2022-02-18 09:25 | PC.NURSE ---
Called into patient's room by family. Pt had rolled over to his left side, no respirations noted. Difficult to auscultate heart tones. heart rate 65 on monitor, PEA. REX Mobley, stated he did not want heroic measures, did not want pt to be shocked , etc.
--- NOTE | 2022-02-18 09:26 | P.PN_ITS ---
Subjective Subjective: Patient went into cardiogenic shock overnight. Has increasing lactate. Requiring higher doses of vasopressors. Urine output is poor Vitals/I&O/Wt Last Vital Signs Temp 94.8 F L 02/18/22 06:10 Pulse 85 02/18/22 08:37 Resp 22 H 02/18/22 08:00 BP 92/57 02/18/22 06:15 Pulse Ox 95 02/18/22 08:37 O2 Del Method 02/18/22 08:00 O2 Flow Rate 6 02/17/22 19:22 FiO2 40 02/18/22 08:37 02/17/22 02/18/22 02/18/22 22:59 06:59 14:59 Intake Total 4.064 / 4.064 249.936 / 254.000 Output Total 225 / 225 Balance 4.064 / 4.064 24.936 / 29.000 Weight last 48 hrs Weight 205 lb Physical Exam Narrative: GENERAL: Patient is alert, awake NECK: No jugular vein distension. [] HEENT: No cyanosis. No icterus. No pallor. [] HEART: Regular S1 and S2. No murmur, rub or gallop. [] LUNGS: Has crackles bilaterally ABDOMEN: Soft, nontender and nondistended. Positive bowel sounds. No guarding, rebound or tenderness. [] CENTRAL NERVOUS SYSTEM: Grossly nonfocal. [] EXTREMITIES: Cool lower extremities Urinary Catheter Management: Wiggins: Cath Placed During This Visit: yes Reason for Continuing Indwelling Catheter: Accurate Measurement of Urinary Output in Critically Ill Patients Urinary Catheter Date of Insertion: 02/17/22 Data : 02/18/22 04:20 02/18/22 05:50 A&P Assessment and plan (1) CAD (coronary artery disease): Status: Acute (2) Hypertension: Status: Acute Qualifiers: Hypertension type: essential hypertension Qualified Code(s): I10 - Essential (primary) hypertension (3) Status post aorto-coronary artery bypass graft: Status: Acute (4) Chronic kidney disease (CKD): Status: Acute Qualifiers: Chronic kidney disease stage: stage 1 Qualified Code(s): N18.1 - Chronic kidney disease, stage 1 (5) Hyperlipidemia, unspecified: Status: Acute Qualifiers: Hyperlipidemia type: pure hypercholesterolemia Qualified Code(s): E78.00 - Pure hypercholesterolemia, unspecified (6) Type 2 diabetes mellitus without complications: Status: Acute Qualifiers: Diabetes mellitus hoop riveter insulin use: without [place] [facility] use Qualified Code(s): E11.9 - Type 2 diabetes mellitus without complications (7) NSTEMI (non-ST elevated myocardial infarction): Status: Acute (8) Cardiogenic shock: Status: Acute Plan Patient has high risk NSTEMI with dynamic EKG changes and transient ST elevat ions in the leads V1-V3. Patient was loaded with aspirin and brilinta. Heparin bolus given. Cardiac cath showed occluded QUIROZ to LAD and SVG to RCA. Only cardiac blood supply is via SVG to OM. Severely diseased RCA with distal occlusion was seen. Overnight patient has gone into cardiogenic shock. Continue heparin drip. Echo shows severely reduced LV systolic function with EF of 15 to 20%. Continue IV Lasix. Urine output is poor. We will start inotropes. Continue Levophed and titrate as needed. Medicine team was consulted to help with management of medical issues. Appreciate input. Had a detailed discussion with patient nephew who is DPOA. He is planning to pursue comfort care measures once patient's brother is here. Till that time patient will have limited resuscitation with only shocks but no intubation. Prognosis is guarded Attestations Medical Necessity Statement*: Care expected to cross 2 midnights. Patient had come with a high risk NSTEMI, was found to have occluded QUIROZ to LAD and SVG to RCA. QUIROZ could not be revascularized given his PAD. Medical management decided Coding Level of Care Code Acute Cash Shortage Investigator for [facility] Diagnoses CAD (coronary artery disease) I25.10 Hypertension I10 Hypertension type: essential hypertension Status post aorto-coronary artery bypass graft Z95.1 Chronic kidney disease (CKD) N18.1 Chronic kidney disease stage: stage 1 Hyperlipidemia, unspecified E78.00 Hyperlipidemia type: pure hypercholesterolemia Type 2 diabetes mellitus without complications E11.9 Diabetes mellitus hoop riveter insulin use: without hoop riveter use NSTEMI (non-ST elevated myocardial infarction) I21.4 Cardiogenic shock R57.0
--- NOTE | 2022-02-18 09:57 | PM.PN ---
Subjective Subjective: Patient went into cardiogenic shock overnight. Has increasing lactate. Requiring higher doses of vasopressors. Urine output is poor Vitals/I&O/Wt Last Vital Signs Temp 94.8 F L 02/18/22 06:10 Pulse 85 02/18/22 08:37 Resp 22 H 02/18/22 08:00 BP 92/57 02/18/22 06:15 Pulse Ox 95 02/18/22 08:37 O2 Del Method 02/18/22 08:00 O2 Flow Rate 6 02/17/22 19:22 FiO2 40 02/18/22 08:37 02/17/22 02/18/22 02/18/22 22:59 06:59 14:59 Intake Total 4.064 / 4.064 249.936 / 254.000 Output Total 225 / 225 Balance 4.064 / 4.064 24.936 / 29.000 Weight last 48 hrs Weight 92.986 kg Physical Exam Urinary Catheter Management: Wiggins: Cath Placed During This Visit: yes Reason for Continuing Indwelling Catheter: Accurate Measurement of Urinary Output in Critically Ill Patients Urinary Catheter Date of Insertion: 02/17/22 Data : 02/18/22 04:20 02/18/22 05:50 A&P Assessment and plan (1) Cardiogenic shock: Status: Acute (2) NSTEMI (non-ST elevated myocardial infarction): Status: Acute (3) Acute respiratory failure with hypoxia: Status: Acute Plan Acute hypoxic respiratory failure, cardiogenic shock, NSTEMI Plan -BiPAP -Monitor respiratory status closely -We will dose Lasix based on clinical progress -Currently on a nitro drip, receiving gentle hydration -Receiving Aggrastat, heart line in place -Aspirin, statin -Anticoagulation currently on hold -Check potassium, magnesium -Insulin, low-dose sliding scale -Full code -Anticoagulant: Currently on hold -Prognosis is guarded, statuses critical -Patient advised his high risk of respiratory failure, high risk of cardiac arrest, high risk of morbidity and mortality in the next 24 to 48 hours Coding Level of Care Code Acute Heat And Frost Insulator Helper for John Jacobs Diagnoses Cardiogenic shock R57.0 NSTEMI (non-ST elevated myocardial infarction) I21.4 Acute respiratory failure with hypoxia J96.01
[2022-02-18] MEDS: morphine 4 mg/mL SDV 1 mL 2 MG IVP (10:09)
--- NOTE | 2022-02-18 12:30 | PM.DDS ---
Discharge Providers DDS Date of Admission: 02/17/22 21:09 Date Summary Completed: 02/18/22 Attending Provider at Admission: Glynn Gibson M.D Time of : 10:08 Attending Provider at Discharge: Glynn Gibson M.D Consults: Internal Medicine Primary Care Provider: Elis Hernández MD DS Diagnoses Hospital Diagnoses (1) CAD (coronary artery disease): (2) Hypertension: Qualifiers: Hypertension type: essential hypertension Qualified Code(s): I10 - Essential (primary) hypertension (3) Status post aorto-coronary artery bypass graft: (4) Chronic kidney disease (CKD): Qualifiers: Chronic kidney disease stage: stage 1 Qualified Code(s): N18.1 - Chronic kidney disease, stage 1 (5) Hyperlipidemia, unspecified: Qualifiers: Hyperlipidemia type: pure hypercholesterolemia Qualified Code(s): E78.00 - Pure hypercholesterolemia, unspecified (6) Type 2 diabetes mellitus without complications: Qualifiers: Diabetes mellitus correction insulin use: without terminal clerk use Qualified Code(s): E11.9 - Type 2 diabetes mellitus without complications (7) NSTEMI (non-ST elevated myocardial infarction): (8) Cardiogenic shock: (9) Acute renal failure: (10) Lactic acidosis: (11) Metabolic acidosis: Reason for Visit Reason for Visit CHEST PAIN Summary Date and Time of Date of : 02/18/22 Time of : 10:08 Summary Summary: Fernando Ortiz is a 87 year old male history of CAD status post CABG, hypertension, dyslipidemia, noninsulin-dependent type 2 diabetes mellitus, chronic kidney disease, history of paroxysmal atrial fibrillation, who presents to [facility] for chest pain. Patient was admitted under cardiology service and internal medicine was consulted for further management. hest pain, substernal, rating down left arm, EKG showed dynamic EKG changes, patient was brought back to the Biomedical Engineering Technician, was found to have severe diffuse disease, severe disease in grafts which were not amenable to revascularization. He was transferred back to the ICU for further management of congestive heart failure, cardiogenic shock. He was started on vasopressors including Levophed, Lasix drip and a nitro drip for continuous chest pain. Patient remained on BiPAP ventilation during the whole hospital stay. Coming off of BiPAP would cause him to get short of breath along with chest pain. Patient was not amenable to assist device versus IABP because of severe peripheral vascular disease. Patient had developed acute renal failure, along with anion gap acidosis, lactic acidosis secondary to cardiogenic shock. Given severity of disease not amenable to revascularization further goals of care discussions were done in detail with patient, patient's DPOA at bedside. Patient and patient's DPOA verbalized understanding and requested for CODE STATUS to be changed to DNR/DNI and to go ahead with comfort measures status only once family is at bedside. While waiting for family patient's hemodynamics continue to worsen and was eventually made comfort measures status. He at 10:08 AM with family at bedside and comfortable status. Additional Data Confirmation of as documented by pronouncing clinician: no pulse and no respirations Family: at bedside Additional persons at bedside: nursing staff Attending/PCP notified?: Attending notified Was code activated?: No Autopsy requested?: No Advance directives?: No Hospice patient?: No Discharge Plan Discharge Patient Disposition: Condition: Serious Prescriptions: No Action glipizide 5 mg tablet 5 mg PO BID 90 Days Qty: 180 1RF metformin 500 mg tablet 500 mg PO BID Qty: 180 3RF tamsulosin 0.4 mg capsule 0.4 mg PO DAILY Qty: 90 3RF hydrochlorothiazide 25 mg tablet 25 mg PO DAILY Qty: 90 1RF allopurinol 300 mg tablet 300 mg PO DAILY Qty: 90 3RF atorvastatin 10 mg tablet 10 mg PO DAILY Qty: 90 2RF omeprazole 10 mg capsule,delayed release(DR/EC) 10 mg PO DAILY Qty: 90 3RF lisinopril 40 mg tablet 40 mg PO DAILY Qty: 90 3RF hydrocodone-acetaminophen 7.5-325 mg tablet 1 tab PO Q4H PRN (Reason: pain) 7 Days Qty: 42 0RF amlodipine 5 mg tablet 5 mg PO DAILY Qty: 90 3RF cyanocobalamin (vitamin B-12) 1,000 mcg/mL solution 1,000 mcg IM Q30D apple cider vinegar 500 mg Tablet 500 mg PO DAILY fluticasone propionate 50 mcg/actuation spray,suspension 2 spray INTRANASAL DAILY PRN (Reason: Allergy Symptoms) Aspir-81 81 mg Tablet,Delayed Release (Dr/Ec) 81 mg PO DAILY PRN (Reason: unknown) Patient Instructions: Opioid Safety Probable Cause of Probable cause of : Cardiogenic shock DS Attestations Time Spent in /Discharge Care*: critical care time (Multiple goals of care discussion, management of vasopressors, Lasix drip, nitro drip) Critical Care Time (min): 90 Quality - AMI: AMI present?: Yes Quality - Stroke: CVA present?: No Symptom Onset Unknown: No Quality - VTE: VTE present?: No Deep Vein Thrombosis/Pulmonary Embolism Present on Admission: No Coding Level of Care Code Acute Hospice Bereavement Coordinator for Chg Fwd History Comprehensive Exam Comprehensive Medical Decision Making High Complexity Diagnoses CAD (coronary artery disease) I25.10 Hypertension I10 Hypertension type: essential hypertension Status post aorto-coronary artery bypass graft Z95.1 Chronic kidney disease (CKD) N18.1 Chronic kidney disease stage: stage 1 Hyperlipidemia, unspecified E78.00 Hyperlipidemia type: pure hypercholesterolemia Type 2 diabetes mellitus without complications E11.9 Diabetes mellitus correction insulin use: without correction use NSTEMI (non-ST elevated myocardial infarction) I21.4 Cardiogenic shock R57.0 Acute renal failure N17.9 Lactic acidosis E87.2 Metabolic acidosis E87.2
--- NOTE | 2022-02-18 12:46 | PC.NURSE ---
1008 Time of . 1050: Dr Stokes and Dr Gibson notified of TOD 1055 [address] [place] notified of . 1130: Both peripheral iVs removed intact. Art line removed intact, pressure held. Wiggins cath removed. Post mortem care provided. 1208: [facility] Representatives here for body transfer.
--- NOTE | 2022-02-18 13:16 | PC.NURSE ---
Family took clothing. Glasses sent with body to [facility]
--- NOTE | 2022-02-18 21:04 | USCV_ITS ---
Diana Fernando Age: 87 Gender: M : 1935 Exam Date: 02/18/2022 01:16 Ordering Phys: Glynn Gibson M.D ([email or web address]) Technologist: XENIA Exam Location: [facility] [place] Indication: post CO BP: 111 / 63 HR: 89 Rhythm: Atrial fibrillation Technical Quality: Adequate MEASUREMENTS (Male / Female) Normal Values 2D ECHO LV Diastolic Diameter PLAX 4.9 cm 4.2 - 5.9 / 3.9 - 5.3 cm LV Systolic Diameter PLAX 4.2 cm IVS Diastolic Thickness 1.8 cm 0.6 - 1.0 / 0.6 - 0.9 cm IVS Systolic Thickness 1.9 cm LVPW Diastolic Thickness 1.5 cm 0.6 - 1.0 / 0.6 - 0.9 cm LVPW Systolic Thickness 1.9 cm LVOT Diameter 2.1 cm LV Ejection Fraction 2D Teich 28.7 % LV Ejection Fraction MOD 2C 9.4 % LV Ejection Fraction 2C AL 7.2 % LA Diameter 5.5 cm LA Width 5.6 cm LA Height 7.1 cm RA Width 4.6 cm RA Height 6.0 cm Aorta at Sinotubular Diameter 2.9 cm IVC Diameter 2.9 cm M-MODE Aortic Annulus Diameter 3.3 cm LA Ao Ratio MM 1.6 MV E Point Septal Separation 5.1 cm DOPPLER AV Peak Velocity 114.0 cm/s LVOT Peak Velocity 72.0 cm/s AV Area Cont Eq vti 1.8 cm squared AV Area Cont Eq pk 2.3 cm squared MV Area PHT 6.7 cm squared MV E' Velocity 64.5 cm/s Mitral E to MV E' Ratio 21.2 Mitral E to LV E' Lateral Ratio 21.9 Mitral E to LV E' Septal Ratio 20.5 TR Peak Velocity 334.3 cm/s TR Peak Gradient 44.7 mmHg TV Peak E Velocity 63.0 cm/s Right Atrial Pressure 15.0 mmHg Pulmonary Artery Systolic Pressu 59.7 mmHg PV Peak Velocity 67.0 cm/s RV Acceleration Time 0.1 s RV Ejection Time 0.2 s RV AcT/ET 0.5 FINDINGS Left Ventricle Left ventricle is normal in size. LV systolic function is severely reduced with EF of 10 to 15%. Akinetic anteroseptal, apical, anterolateral and anterior davis. Diastolic function is indeterminate because of atrial fibrillation Right Ventricle Moderately reduced function Right Atrium Normal in size Left Atrium Left atrium is severely dilated Mitral Valve Mild mitral annular calcification is seen. Moderate mitral regurgitation Aortic Valve Aortic valve is thickened and calcified. Trace aortic regurgitation Tricuspid Valve Moderate tricuspid regurgitation. RVSP is more than 60 mmHg. This is consistent with severe pulmonary hypertension Pulmonic Valve Not well-visualized Pericardium Normal Aorta Normal in size IVC CONCLUSIONS LV systolic function is severely reduced with EF of 10 to 15%. Above-mentioned regional wall motion abnormalities are seen. Diastolic function is indeterminate because of atrial fibrillation. Moderately reduced RV function. Severely dilated left atrium. Moderate mitral regurgitation Trace aortic regurgitation Moderate tricuspid regurgitation. Severe pulmonary hypertension. No comparison studies are available Glynn Gibson MD (Electronically Signed) Final Date: 18 February 2022 17:08 S
== END 2022-02-18 12:10 | disposition expired ==
LOC: ER 19:05 → CCL 19:10 → ICU 21:10
PROVIDERS: Family Medicine; Admitting Provider Internal Medicine; Emergency Provider Emergency Medicine; PCP Family Medicine; Visit Provider Internal Medicine
PROC: B3101ZZ Fluoroscopy of Thoracic Aorta using Low Osmolar Contrast (ICD-10-PCS; principal; 2022-02-17 19:00)
DX: I21.4 Non-ST elevation (NSTEMI) myocardial infarction (principal); I50.21 Acute systolic (congestive) heart failure; J96.01 Acute respiratory failure with hypoxia; I25.719 Atherosclerosis of autologous vein coronary artery bypass graft(s) with unspecified angina pectoris; I25.729 Atherosclerosis of autologous artery coronary artery bypass graft(s) with unspecified angina pectoris; I13.0 Hypertensive heart and chronic kidney disease with heart failure and stage 1 through stage 4 chronic kidney disease, or unspecified chronic kidney disease; N17.9 Acute kidney failure, unspecified; E87.2 Acidosis; I25.119 Atherosclerotic heart disease of native coronary artery with unspecified angina pectoris; N18.1 Chronic kidney disease, stage 1; E11.22 Type 2 diabetes mellitus with diabetic chronic kidney disease; E11.51 Type 2 diabetes mellitus with diabetic peripheral angiopathy without gangrene; K21.9 Gastro-esophageal reflux disease without esophagitis; Z85.828 Personal history of other malignant neoplasm of skin; E78.00 Pure hypercholesterolemia, unspecified; M54.16 Radiculopathy, lumbar region; Z96.652 Presence of left artificial knee joint; R57.0 Cardiogenic shock; Z79.82 Long term (current) use of aspirin; Z79.891 Long term (current) use of opiate analgesic; Z51.5 Encounter for palliative care; Z66 Do not resuscitate; I48.0 Paroxysmal atrial fibrillation
CPT/HCPCS: 36415; 36416; 36600; 51702; 71045; 80048; 80051; 80053; 82330; 82550; 82805; 82962; 83605; 83735; 83880; 84100; 84484; 85025; 85610; 85730; 86140; 93005; 93010; 93306; 93455; 94640; 94660; 96360; 96372; 96374; 96375; 99152; 99153; 99285; 99291; C1769; C1887; C1894; C9113; J1644; J1815; J1940; J2250; J2270; J2405; J2543; J3010; J3475; J3490; J7040; Q9967